=== PATIENT | male | born 1935 | race Caucasian/White ===

== ENCOUNTER 2018-01-03 20:39 | Emergency (ER) | payer MEDICARE, BC ==
--- NOTE | 2018-01-03 20:46 | EDM.PDOC ---
ED HPI GENERAL MEDICAL PROBLEM - General Stated Complaint: FELL Time Seen by Provider: 01/03/18 20:40 Source of Information: Reports: Patient, EMS History Limitations: Reports: No Limitations - History of Present Illness INITIAL COMMENTS - FREE TEXT/NARRATIVE: 82-year-old male who lives alone fell earlier this evening. He sustained an injury to his scalp, left shoulder, left ear, and has some discomfort in his right lower leg. He did have his phone so was able to call for help, was not on the floor for very long. Did not lose consciousness and remembers the incident. He is on anticoagulants. Onset: Sudden Location: Reports: Head, Upper Extremity, Left Severity: Moderate Worsens with: Reports: Movement Associated Symptoms: Denies: Confusion, Chest Pain, Cough, Diaphoresis, Fever/ Chills, Headaches, Nausea/Vomiting, Shortness of Breath Left Shoulder Pain Score (Numeric/FACES): 9 - Related Data Allergies Allergy/AdvReac Type Severity Reaction Status Date / Time rofecoxib [From Vioxx] Allergy Cannot Verified 01/03/18 21:20 Remember Home Meds: Home Meds Levothyroxine Sodium [Synthroid] 75 mcg PO DAILY 01/03/18 [History] Metoprolol Tartrate 25 mg PO BID 01/03/18 [History] Multivitamin [Multi-Day Vitamins] 1 tab PO DAILY 01/03/18 [History] Pantoprazole Sodium [Protonix] 40 mg PO DAILY 01/03/18 [History] Polyethylene Glycol 3350 [MiraLAX] 1 dose PO DAILY 01/03/18 [History] Potassium Chloride [Klor-Con M20] 20 meq PO BID 01/03/18 [History] Sotalol [Betapace] 80 mg PO BID 01/03/18 [History] Torsemide 20 mg PO ASDIRECTED 01/03/18 [History] Warfarin [Coumadin] 5 mg PO ASDIRECTED 01/03/18 [History] atorvaSTATin [Lipitor] 40 mg PO BEDTIME 01/03/18 [History] Past Medical History - Past Surgical History Other Cardiovascular Surgeries/Procedures: 2006 valve repairment Other Oncologic Surgeries/Procedures: colon ca surgery 1998 Social & Family History - Tobacco Use Smoking Status *Q: Never Smoker Second Hand Smoke Exposure: No - Alcohol Use Days Per Week of Alcohol Use: 0 - Recreational Drug Use Recreational Drug Use: No ED ROS GENERAL - Review of Systems Review Of Systems: See Below Constitutional: Denies: Fever, Chills HEENT: Denies: Vision Change Respiratory: Denies: Shortness of Breath, Cough Cardiovascular: Denies: Chest Pain GI/Abdominal: Denies: Abdominal Pain : Reports: No Symptoms Musculoskeletal: Reports: Shoulder Pain (Left-sided) Skin: Reports: Bruising (Bruising and areas of swelling on the scalp, bleeding from the left ear) Neurological: Denies: Headache Psychiatric: Reports: No Symptoms ED EXAM, GENERAL - Physical Exam Exam: See Below Exam Limited By: No Limitations General Appearance: Alert, No Apparent Distress (Patient looks uncomfortable but not distressed) Eye Exam: Bilateral Eye: EOMI Ears: Other (There is superficial abrasion with 2 very small lacerations on the jeni of the helix) Throat/Mouth: Normal Inspection Head: Other (2 separate small hematomas/contusions on the frontal scalp are present.) Respiratory/Chest: No Respiratory Distress, Lungs Clear Cardiovascular: Irregularly Irregular GI/Abdominal: Soft, Non-Tender Extremities: Pedal Edema (1+ symmetric edema, venous stasis changes of the skin) , Other Neurological: Alert, Oriented Psychiatric: Normal Affect, Normal Mood Course - Vital Signs Last Recorded V/S: Last Vital Signs Temp 98.1 F 01/03/18 21:24 Pulse 74 01/03/18 22:44 Resp 16 01/03/18 22:44 BP 168/74 H 01/03/18 22:44 Pulse Ox 96 01/03/18 22:44 - Orders/Labs/Meds Orders: Active Orders 24 hr Category Date Time Status Head wo Cont [CT] Stat Exams 01/03/18 20:45 Taken Humerus Lt [CR] Stat Exams 01/03/18 20:45 Taken Labs: Laboratory Tests 01/03/18 01/03/18 01/03/18 Range/Units 21:58 21:58 21:59 WBC 9.4 (4.5-11.0) K/uL RBC 3.59 L (4.30-5.90) M/uL Hgb 10.5 L (12.0-15.0) g/dL Hct 33.4 L (40.0-54.0) % MCV 93 (80-98) fL MCH 29 (27-31) pg MCHC 31 L (32-36) % Plt Count 138 L (150-400) K/uL Neut % (Auto) 82 H (36-66) % Lymph % (Auto) 9 L (24-44) % [place] % (Auto) 7 H (2-6) % Eos % (Auto) 2 (2-4) % Baso % (Auto) 0 (0-1) % PT 12.7 H (9.5-12.0) sec INR 1.18 (0.80-1.20) Sodium 141 (140-148) mmol/L Potassium 4.0 (3.6-5.2) mmol/L Chloride 107 (100-108) mmol/L Carbon Dioxide 26 (21-32) mmol/L Anion Gap 8.2 (5.0-14.0) mmol/L BUN 27 H (7-18) mg/dL Creatinine 1.1 (0.8-1.3) mg/dL Est Cr Clr Drug Dosing 52.67 mL/min Estimated GFR (MDRD) > 60 (>60) Glucose 147 H (74-106) mg/dL Calcium 8.4 L (8.5-10.1) mg/dL Meds: Medications Discontinued Medications Generic Name Dose Route Start Last Admin Trade Name Freq PRN Reason Stop Dose Admin Fentanyl 25 mcg 01/03/18 21:42 01/03/18 21:48 Sublimaze IVPUSH 01/03/18 21:43 25 mcg ONETIME ONE Administration Fentanyl 25 mcg 01/03/18 23:26 01/03/18 23:34 Sublimaze IVPUSH 01/03/18 23:27 25 mcg ONETIME ONE Administration - Re-Assessments/Exams Free Text/Narrative Re-Assessment/Exam: 01/03/18 22:01 Because of the Coumadin therapy, age of the patient and traumatic injury to the head, a CT of the head was obtained that showed no acute findings. An x-ray confirmed a fracture of the very proximal aspect of the surgical area of the left humerus. There was some mild displacement. The patient needed an additional 25 g of fentanyl for pain control. 01/03/18 22:49 INR was 1.18, Hemoccult and 10.7 which is consistent with previous readings at the clinic. CT of his head was negative. The patient will be transferred to [facility] for pain control, stabilization and likely long-term rehabilitation. Departure - Departure Time of Disposition: 00:04 Disposition: DC/Tfer to Other 70 Condition: Fair Clinical Impression: Humerus surgical neck fracture Qualifiers: Encounter type: initial encounter Fracture type: closed Fracture morphology: unspecified fracture morphology Fracture alignment: displaced Laterality: left Qualified Code(s): S42.212A - Unspecified displaced fracture of surgical neck of left humerus, initial encounter for closed fracture Closed head injury Qualifiers: Encounter type: initial encounter Qualified Code(s): S09.90XA - Unspecified injury of head, initial encounter - Discharge Information Referrals: PCP,None [Primary Care Provider] - Forms: ED Department Discharge Care Plan Goals: Patient's arm was immobilized, and transportation to [place] essential for inpatient evaluation and treatment was arranged. - My Orders Last 24 Hours: My Active Orders 01/03/18 20:45 Head wo Cont [CT] Stat Humerus Lt [CR] Stat - Assessment/Plan Last 24 Hours: My Active Orders 01/03/18 20:45 Head wo Cont [CT] Stat Humerus Lt [CR] Stat
[2018-01-03] MEDS ORDERED: fentaNYL 100 MCG/2 ML SDV IVPUSH ONE ×2 (21:42→23:26)
[2018-01-03 22:45] VITALS: BP 168/74
--- NOTE | 2018-01-04 11:21 | CR ---
Fracture of the surgical neck of the humerus extending into the left humeral head. Foreshortening at the fracture site. Arthritic change glenohumeral joint appears advanced.
== END 2018-01-03 23:55 | disposition other institution (70) ==
LOC: JP.ED 20:39
DX: S42.212A Unspecified displaced fracture of surgical neck of left humerus, initial encounter for closed fracture (principal); S09.90XA Unspecified injury of head, initial encounter; S01.312A Laceration without foreign body of left ear, initial encounter; W19.XXXA Unspecified fall, initial encounter; Z79.899 Other long term (current) drug therapy; Z88.8 Allergy status to other drugs, medicaments and biological substances; Z79.01 Long term (current) use of anticoagulants
CPT/HCPCS: 36415; 70450; 73060; 80048; 85025; 85610; 96374; 96376; 99285; J3010

== ENCOUNTER 2019-02-18 12:42 | Emergency (ER) | payer MEDICARE, BC ==
--- NOTE | 2019-02-18 13:35 | EDM.PDOC ---
ED HPI GENERAL MEDICAL PROBLEM - General Chief Complaint: General Stated Complaint: sob Time Seen by Provider: 02/18/19 13:20 Source of Information: Reports: Patient History Limitations: Reports: No Limitations - History of Present Illness INITIAL COMMENTS - FREE TEXT/NARRATIVE: 83-year-old male who was started on lisinopril 5 days ago has felt off, lightheaded, somewhat short of breath with activity and is wondering if he is having a serious reaction to the new medication. He does have a history of atrial fibrillation which is controlled with sotalol. He had labs done last week and he was told everything was "fine". He has no chest pain, no increased peripheral edema or nausea or vomiting. No nocturnal dyspnea. Onset: Unknown/Unsure Associated Symptoms: Reports: Shortness of Breath (With activity), Other ( Dizziness). Denies: Confusion, Chest Pain, Cough, Diaphoresis, Nausea/Vomiting Deneis Pain Score (Numeric/FACES): 0 - Related Data Allergies Allergy/AdvReac Type Severity Reaction Status Date / Time rofecoxib [From Vioxx] Allergy Cannot Verified 02/18/19 12:55 Remember Home Meds: Home Meds Levothyroxine Sodium [Synthroid] 75 mcg PO DAILY 01/03/18 [History] Multivitamin [Multi-Day Vitamins] 1 tab PO DAILY 01/03/18 [History] Pantoprazole Sodium [Protonix] 40 mg PO DAILY 01/03/18 [History] Polyethylene Glycol 3350 [MiraLAX] 1 dose PO DAILY PRN 01/03/18 [History] Potassium Chloride [Klor-Con M20] 20 meq PO DAILY 01/03/18 [History] Sotalol [Betapace] 80 mg PO BID 01/03/18 [History] Torsemide 40 mg PO ASDIRECTED 01/03/18 [History] Warfarin [Coumadin] 5 mg PO ASDIRECTED 01/03/18 [History] atorvaSTATin [Lipitor] 40 mg PO BEDTIME 01/03/18 [History] Lisinopril 5 mg PO DAILY 02/18/19 [History] Past Medical History HEENT History: Reports: Hard of Hearing Cardiovascular History: Reports: Afib, High Cholesterol, Hypertension Other Cardiovascular History: supraventricular beats, mitral valve regurg Musculoskeletal History: Reports: Arthritis, Osteoarthritis Endocrine/Metabolic History: Reports: Hypothyroidism Hematologic History: Reports: Blood Transfusion(s) Oncologic (Cancer) History: Reports: Colon - Infectious Disease History Infectious Disease History: Reports: Chicken Pox, Measles, Mumps - Past Surgical History Other Cardiovascular Surgeries/Procedures: 2006 valve repairment valve replacement 2016 GI Surgical History: Reports: Other (See Below) Other GI Surgeries/Procedures: colon resection with ostomy Musculoskeletal Surgical History: Reports: Arthroscopic Knee, Hip Replacement, Joint Replacement, Knee Replacement Other Oncologic Surgeries/Procedures: colon ca surgery 1998 Dermatological Surgical History: Reports: Skin Biopsy Social & Family History - Tobacco Use Smoking Status *Q: Never Smoker Second Hand Smoke Exposure: No - Caffeine Use Caffeine Use: Reports: None - Alcohol Use Days Per Week of Alcohol Use: 0 - Recreational Drug Use Recreational Drug Use: No ED ROS GENERAL - Review of Systems Review Of Systems: See Below Constitutional: Denies: Fever, Chills, Malaise HEENT: Reports: No Symptoms Respiratory: Reports: Shortness of Breath Cardiovascular: Denies: Chest Pain, Palpitations GI/Abdominal: Denies: Abdominal Pain, Nausea, Vomiting : Reports: No Symptoms Skin: Reports: No Symptoms Neurological: Reports: Dizziness Psychiatric: Reports: No Symptoms ED EXAM, GENERAL - Physical Exam Exam: See Below Exam Limited By: No Limitations General Appearance: Alert, No Apparent Distress Head: Atraumatic Neck: Normal Inspection Respiratory/Chest: No Respiratory Distress, Lungs Clear Cardiovascular: Regular Rate, Rhythm. No: Extra Beats GI/Abdominal: Soft, Non-Tender Extremities: Other (Symmetric trace edema of the lower extremities around the ankles) Neurological: Alert, Oriented Course - Vital Signs Last Recorded V/S: Last Vital Signs Temp 98.4 F 02/18/19 13:13 Pulse 55 L 02/18/19 14:25 Resp 16 02/18/19 13:13 BP 178/65 H 02/18/19 14:25 Pulse Ox 97 02/18/19 13:13 - Orders/Labs/Meds Labs: Laboratory Tests 02/18/19 02/18/19 Range/Units 13:43 13:43 WBC 5.7 (4.5-11.0) K/uL RBC 3.95 L (4.30-5.90) M/uL Hgb 12.5 D (12.0-15.0) g/dL Hct 38.2 L (40.0-54.0) % MCV 97 (80-98) fL MCH 32 H (27-31) pg MCHC 33 (32-36) % Plt Count 110 L (150-400) K/uL Neut % (Auto) 56 (36-66) % Lymph % (Auto) 25 (24-44) % [place] % (Auto) 13 H (2-6) % Eos % (Auto) 6 H (2-4) % Baso % (Auto) 0 (0-1) % Sodium 144 (140-148) mmol/L Potassium 4.6 (3.6-5.2) mmol/L Chloride 107 (100-108) mmol/L Carbon Dioxide 31 (21-32) mmol/L Anion Gap 6.1 (5.0-14.0) mmol/L BUN 38 H (7-18) mg/dL Creatinine 1.4 H (0.8-1.3) mg/dL Est Cr Clr Drug Dosing 42.00 mL/min Estimated GFR (MDRD) 49 L (>60) Glucose 89 (74-106) mg/dL Calcium 9.2 (8.5-10.1) mg/dL - Re-Assessments/Exams Free Text/Narrative Re-Assessment/Exam: 02/18/19 13:35 CBC and BMP were obtained, discussed with patient that lisinopril can have initial effects on the kidneys and electrolytes however if those are normal I think he can continue the medication. 02/18/19 17:05 Creatinine is 1.4 and GFR 47. These were normal last week. I asked the patient to hold tomorrow's dose of Lisinopril prior to his recheck and take the labs with to show the provider. Departure - Departure Time of Disposition: 14:58 Disposition: Home, Self-Care 01 Condition: Good Clinical Impression: Renal insufficiency Hypertension Qualifiers: Hypertension type: essential hypertension Qualified Code(s): I10 - Essential ( primary) hypertension - Discharge Information Instructions: Hypertension, [id number] Referrals: Coleman Arredondo MD [Primary Care Provider] - Forms: ED Department Discharge Care Plan Goals: Hold your lisinopril dose until you talk with your provider tomorrow, and take labs with to compare to last week. Return to the emergency room if you become significantly short of breath or develop chest pain.
[2019-02-18 14:34] VITALS: BP 178/65
== END 2019-02-18 14:58 | disposition home or self-care (01) ==
LOC: JP.ED 12:42
DX: N28.9 Disorder of kidney and ureter, unspecified (principal); I10 Essential (primary) hypertension; I48.91 Unspecified atrial fibrillation; E78.00 Pure hypercholesterolemia, unspecified; E03.9 Hypothyroidism, unspecified; Z79.899 Other long term (current) drug therapy; Z88.8 Allergy status to other drugs, medicaments and biological substances
CPT/HCPCS: 36415; 80048; 85025; 99283; 99284

== ENCOUNTER 2019-08-09 10:40 | Emergency (ER) | payer MEDICARE, BC ==
--- NOTE | 2019-08-09 11:17 | EDM.PDOC ---
ED HPI GENERAL MEDICAL PROBLEM - General Chief Complaint: General Stated Complaint: DIZZY THE A COLD SWEAT Time Seen by Provider: 08/09/19 11:07 Source of Information: Reports: Patient, Family, RN Notes Reviewed History Limitations: Reports: No Limitations - History of Present Illness INITIAL COMMENTS - FREE TEXT/NARRATIVE: 84-year-old gentleman presents emergency department today complaint of dizziness and diaphoresis. He awoke this morning stood up to go to the bathroom sudden onset of dizziness followed by diaphoresis and weakness, he denies any syncopal event, chest pain nausea vomiting or shortness of breath beyond baseline. At this time all of the symptoms have resolved - Related Data Allergies Allergy/AdvReac Type Severity Reaction Status Date / Time rofecoxib [From Vioxx] Allergy Cannot Verified 08/09/19 10:57 Remember Home Meds: Home Meds Levothyroxine Sodium [Synthroid] 75 mcg PO DAILY 01/03/18 [History] Multivitamin [Multi-Day Vitamins] 1 tab PO DAILY 01/03/18 [History] Pantoprazole Sodium [Protonix] 40 mg PO DAILY 01/03/18 [History] Polyethylene Glycol 3350 [MiraLAX] 1 dose PO DAILY PRN 01/03/18 [History] Potassium Chloride [Klor-Con M20] 20 meq PO DAILY 01/03/18 [History] Sotalol [Betapace] 80 mg PO BID 01/03/18 [History] Torsemide 40 mg PO ASDIRECTED 01/03/18 [History] Warfarin [Coumadin] 5 mg PO ASDIRECTED 01/03/18 [History] atorvaSTATin [Lipitor] 40 mg PO BEDTIME 01/03/18 [History] Aspirin [Halfprin] 81 mg PO DAILY 04/16/19 [History] Magnesium 30 mg PO DAILY 04/16/19 [History] amLODIPine [Norvasc] 5 mg PO DAILY 04/16/19 [History] Past Medical History HEENT History: Reports: Hard of Hearing Cardiovascular History: Reports: Afib, High Cholesterol, Hypertension Other Cardiovascular History: supraventricular beats, mitral valve regurg Musculoskeletal History: Reports: Arthritis, Osteoarthritis Endocrine/Metabolic History: Reports: Hypothyroidism Hematologic History: Reports: Blood Transfusion(s) Oncologic (Cancer) History: Reports: Colon - Infectious Disease History Infectious Disease History: Reports: Chicken Pox, Measles, Mumps - Past Surgical History Other Cardiovascular Surgeries/Procedures: 2006 valve repairment valve replacement 2016 GI Surgical History: Reports: Other (See Below) Other GI Surgeries/Procedures: colon resection with ostomy Musculoskeletal Surgical History: Reports: Arthroscopic Knee, Hip Replacement, Joint Replacement, Knee Replacement Other Oncologic Surgeries/Procedures: colon ca surgery 1998 Dermatological Surgical History: Reports: Skin Biopsy Social & Family History - Tobacco Use Smoking Status *Q: Never Smoker - Caffeine Use Caffeine Use: Reports: None ED ROS GENERAL - Review of Systems Review Of Systems: See Below Constitutional: Reports: Diaphoresis HEENT: Reports: No Symptoms Respiratory: Reports: No Symptoms Cardiovascular: Reports: Dyspnea on Exertion (Not beyond baseline), Lightheadedness. Denies: Syncope GI/Abdominal: Reports: No Symptoms : Reports: No Symptoms Neurological: Reports: Dizziness ED EXAM, GENERAL - Physical Exam Exam: See Below Free Text/Narrative:: General: Male, not in any distress, alert and oriented x3 HEENT: head is atraumatic normocephalic, eyes pupils equal round reactive to light, sclera clear no conjunctivitis appreciated. Ears hearing aids in place bilaterally. Nose no septal deviation, nares are clear, no blood present. Mouth mucosa is moist and pink no erythema or exudate noted in soft palate, tongue is midline uvula is midline, dentition is intact. Neck: Supple no thyromegaly no tracheal deviation. Nodes: Cervical nodes subclavicular nodes nontender no palpable lymphadenopathy noted. Lungs: clear to auscultation bilaterally with symmetrical respirations, no adventitious noise appreciated. CV: Irregularly irregular Regular rate and rhythm S1 and S2 appreciated no murmurs rubs or gallops noted. Abdomen: Soft, nontender, no palpable masses or organomegaly appreciated, no distention no guarding bowel sounds are present, colostomy bag in place. Neuro: GCS 15 Skin: Warm and dry, intact Extremities: +2 pitting edema bilaterally. Course - Vital Signs Last Recorded V/S: Last Vital Signs Temp 97.4 F 08/09/19 11:04 Pulse 56 L 08/09/19 11:46 Resp 13 08/09/19 11:04 BP 170/62 H 08/09/19 11:46 Pulse Ox 96 08/09/19 11:46 - Orders/Labs/Meds Orders: Active Orders 24 hr Category Date Time Status Cardiac Monitoring [RC] .As Directed Care 08/09/19 11:13 Active EKG Documentation Completion [RC] ASDIRECTED Care 08/09/19 11:13 Active EKG 12 Lead [EK] Stat Ther 08/09/19 11:13 Ordered Labs: Laboratory Tests 08/09/19 08/09/19 08/09/19 Range/Units 11:20 11:20 11:20 WBC 7.6 (4.5-11.0) K/uL RBC 4.28 L (4.30-5.90) M/uL Hgb 13.7 (12.0-15.0) g/dL Hct 41.1 (40.0-54.0) % MCV 96 (80-98) fL MCH 32 H (27-31) pg MCHC 33 (32-36) % Plt Count 118 L (150-400) K/uL Neut % (Auto) 81 H (36-66) % Lymph % (Auto) 13 L (24-44) % [place] % (Auto) 6 (2-6) % Eos % (Auto) 1 L (2-4) % Baso % (Auto) 0 (0-1) % PT 20.2 H (9.5-12.0) sec INR 1.94 H (0.80-1.20) Sodium 141 (140-148) mmol/L Potassium 3.4 L (3.6-5.2) mmol/L Chloride 104 (100-108) mmol/L Carbon Dioxide 29 (21-32) mmol/L Anion Gap 11.4 (5.0-14.0) mmol/L BUN 24 H (7-18) mg/dL Creatinine 1.1 (0.8-1.3) mg/dL Est Cr Clr Drug Dosing 52.54 mL/min Estimated GFR (MDRD) > 60 (>60) Glucose 163 H (74-106) mg/dL Calcium 8.5 (8.5-10.1) mg/dL Troponin I < 0.017 (0.000-0.056) ng/mL Departure - Departure Time of Disposition: 12:39 Disposition: Home, Self-Care 01 Condition: Fair Clinical Impression: Dizzy - Discharge Information Referrals: Coleman Arredondo MD [Primary Care Provider] - Forms: ED Department Discharge Additional Instructions: Continue with your regular medications, please keep your follow-up appointments with your primary care and cardiology call or return to the emergency department worsening of symptoms - My Orders Last 24 Hours: My Active Orders 08/09/19 11:13 Cardiac Monitoring [RC] .As Directed EKG Documentation Completion [RC] ASDIRECTED EKG 12 Lead [EK] Stat - Assessment/Plan Last 24 Hours: My Active Orders 08/09/19 11:13 Cardiac Monitoring [RC] .As Directed EKG Documentation Completion [RC] ASDIRECTED EKG 12 Lead [EK] Stat Plan: Assessment Acuity = acute Site and laterality = dizziness 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
[2019-08-09 11:46] VITALS: BP 170/62; PULSE 56
== END 2019-08-09 12:56 | disposition home or self-care (01) ==
LOC: JP.ED 10:40
DX: R42 Dizziness and giddiness (principal); I48.91 Unspecified atrial fibrillation; I10 Essential (primary) hypertension; E03.9 Hypothyroidism, unspecified; Z88.8 Allergy status to other drugs, medicaments and biological substances; Z79.01 Long term (current) use of anticoagulants; Z79.82 Long term (current) use of aspirin; Z79.890 Hormone replacement therapy; Z79.899 Other long term (current) drug therapy
CPT/HCPCS: 36415; 80048; 84484; 85025; 85610; 93005; 99284-25

== ENCOUNTER 2021-10-09 05:58 | Emergency (ER) | payer MEDICARE, BC ==
[2021-10-09 06:14] VITALS: BP 168/68; PULSE 84
--- NOTE | 2021-10-09 06:55 | EDM.PDOC ---
<Syed Winslow - Last Filed: 10/09/21 06:45> ED HPI GENERAL MEDICAL PROBLEM - General Chief Complaint: Abdominal Pain Stated Complaint: [facility] Time Seen by Provider: 10/09/21 06:30 Source of Information: Reports: Patient, EMS History Limitations: Reports: No Limitations - History of Present Illness INITIAL COMMENTS - FREE TEXT/NARRATIVE: 86-year-old male with a significant persistent cough for the past 5 to 6 days, causing some abdominal pain and nausea. He feels weak and had a episode of emesis this morning so called the ambulance. He wants to drink water but when he does it makes him nauseous. Cough is nonproductive, no fevers or chills. He is fully vaccinated for Covid. He has not been seen or tested recently. Onset: Gradual Duration: Day(s): (Symptoms have been worsening for the past 6 days especially as cough and soreness in his abdomen) Improves with: Reports: None Associated Symptoms: Reports: Cough, Malaise, Nausea/Vomiting, Shortness of Breath. 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 Bilateral Abdomen Pain Score (Numeric/FACES): 4 - Related Data Allergies Allergy/AdvReac Type Severity Reaction Status Date / Time rofecoxib [From Vioxx] Allergy Cannot Verified 10/09/21 06:14 Remember Home Meds: Home Meds Levothyroxine Sodium [Synthroid] 75 mcg PO DAILY 01/03/18 [History] Multivitamin [Multi-Day Vitamins] 1 tab PO DAILY 01/03/18 [History] Pantoprazole Sodium [Protonix] 40 mg PO DAILY 01/03/18 [History] Potassium Chloride [Klor-Con M20] 20 meq PO DAILY 01/03/18 [History] Sotalol [Betapace] 80 mg PO BID 01/03/18 [History] Torsemide 40 mg PO ASDIRECTED 01/03/18 [History] Warfarin [Coumadin] 5 mg PO ASDIRECTED 01/03/18 [History] atorvaSTATin [Lipitor] 40 mg PO BEDTIME 01/03/18 [History] polyethylene glycoL 3350 [MiraLAX] 1 dose PO DAILY PRN 01/03/18 [History] Aspirin [Halfprin] 81 mg PO DAILY 04/16/19 [History] Magnesium 30 mg PO DAILY 04/16/19 [History] amLODIPine [Norvasc] 5 mg PO DAILY 04/16/19 [History] Oseltamivir [Tamiflu] 75 mg PO BID #9 cap 10/09/21 [Rx] Past Medical History HEENT History: Reports: Hard of Hearing, Impaired Vision Cardiovascular History: Reports: Afib, High Cholesterol, Hypertension Other Cardiovascular History: supraventricular beats, mitral valve regurg Musculoskeletal History: Reports: Arthritis, Osteoarthritis Endocrine/Metabolic History: Reports: Hypothyroidism Hematologic History: Reports: Blood Transfusion(s) Oncologic (Cancer) History: Reports: Colon - Infectious Disease History Infectious Disease History: Reports: Chicken Pox, Measles, Mumps - Past Surgical History Other Cardiovascular Surgeries/Procedures: 2006 valve repairment valve replacement 2015 GI Surgical History: Reports: Colostomy, Other (See Below) Other GI Surgeries/Procedures: colon resection with ostomy Musculoskeletal Surgical History: Reports: Arthroscopic Knee, Hip Replacement, Joint Replacement, Knee Replacement Other Oncologic Surgeries/Procedures: colon ca surgery 1998 Dermatological Surgical History: Reports: Skin Biopsy Social & Family History - Tobacco Use Tobacco Use Status *Q: Never Tobacco User - Caffeine Use Caffeine Use: Reports: None - Recreational Drug Use Recreational Drug Use: No ED ROS GENERAL - Review of Systems Review Of Systems: See Below Constitutional: Reports: Malaise, Decreased Appetite. Denies: Fever, Chills HEENT: Denies: Throat Pain Respiratory: Reports: Shortness of Breath, Cough. Denies: Sputum Cardiovascular: Denies: Chest Pain, Palpitations GI/Abdominal: Reports: Abdominal Pain (Especially with coughing), Vomiting ( one episode of vomiting this morning) : Reports: No Symptoms Skin: Reports: Other (Venous stasis changes of his lower extremities) Neurological: Reports: Weakness. Denies: Dizziness, Headache Psychiatric: Reports: No Symptoms ED EXAM, GENERAL - Physical Exam Exam: See Below General Appearance: Alert, No Apparent Distress Eye Exam: Bilateral Eye: Normal Inspection (No jaundice) Head: Atraumatic Respiratory/Chest: No Respiratory Distress, Decreased Breath Sounds (Diffuse decreased breath sounds, a few scattered rhonchi but overall good air movement bilaterally) Cardiovascular: Regular Rate, Rhythm. No: Extra Beats GI/Abdominal: Normal Bowel Sounds, Soft, Tender (Diffuse mild tenderness to palp ation, no focal tenderness or guarding) Extremities: Other (A trace of symmetric pitting edema, significant chronic discoloration of the lower extremities due to vascular insufficiency) Neurological: Alert, Oriented Psychiatric: Normal Affect, Normal Mood Skin Exam: Warm, Dry Course - Re-Assessments/Exams Free Text/Narrative Re-Assessment/Exam: 10/09/21 06:56 A 4 Plex Covid study was obtained as well as a CBC and CMP. Chest x-ray may be beneficial. Care was turned over to Dr. Beck. Departure - Departure Disposition: Home, Self-Care 01 Clinical Impression: Influenza A, Weakness - Discharge Information Prescriptions: Oseltamivir [Tamiflu] 75 mg PO BID #9 cap Instructions: Influenza, Adult, [id number] Referrals: PCP,None [Primary Care Provider] - Forms: ED Department Discharge Additional Instructions: Take Tamiflu every 12 hrs until gone. Take acetaminophen up to 1000 mg every 6 hrs as needed for pain and fever control. Drink ample fluids. Follow up with your family doctor as needed for further guidance. Sepsis Event Note (ED) - Evaluation Sepsis Screening Result: No Definite Risk <Kit Beck - Last Filed: 10/09/21 11:23> Course - Vital Signs Last Recorded V/S: Last Vital Signs Temp 37.7 C 10/09/21 06:01 Pulse 84 10/09/21 06:01 Resp 18 10/09/21 06:01 BP 168/68 H 10/09/21 06:01 Pulse Ox 95 10/09/21 06:01 - Orders/Labs/Meds Orders: Active Orders 24 hr Category Date Time Status Chest 2V [CR] Routine Exams 10/09/21 06:44 Taken Isolation [COMM] Stat Oth 10/09/21 06:22 Ordered Labs: Laboratory Tests 10/09/21 10/09/21 10/09/21 Range/Units 06:22 06:59 06:59 WBC 7.7 (4.5-11.0) K/uL RBC 3.87 L (4.30-5.90) M/uL Hgb 12.4 (12.0-15.0) g/dL Hct 37.2 L (40.0-54.0) % MCV 96 (80-98) fL MCH 32 H (27-31) pg MCHC 33 (32-36) % Plt Count 165 (150-400) K/uL Neut % (Auto) 80.2 H (36-66) % Lymph % (Auto) 9.4 L (24-44) % [place] % (Auto) 10.0 H (2-6) % Eos % (Auto) 0.1 L (2-4) % Baso % (Auto) 0.3 (0-1) % Sodium 141 (140-148) mmol/L Potassium 3.9 (3.6-5.2) mmol/L Chloride 101 (100-108) mmol/L Carbon Dioxide 31 (21-32) mmol/L Anion Gap 9.2 (5.0-14.0) mmol/L BUN 23 H (7-18) mg/dL Creatinine 1.2 (0.8-1.3) mg/dL Est Cr Clr Drug Dosing 45.01 mL/min Estimated GFR (MDRD) 58 L (>60) Glucose 124 H (74-106) mg/dL Calcium 8.9 (8.5-10.1) mg/dL Total Bilirubin 0.8 (0.2-1.0) mg/dL AST 34 (15-37) U/L ALT 32 (12-78) U/L Alkaline Phosphatase 87 (46-116) U/L Total Protein 7.1 (6.4-8.2) g/dL Albumin 3.3 L (3.4-5.0) g/dL Globulin 3.8 H (2.3-3.5) g/dL Albumin/Globulin Ratio 0.9 L (1.2-2.2) Influenza Type A RNA Positive H (NEGATIVE) RSV RNA (INAAT) Negative (NEGATIVE) Influenza Type B RNA Negative (NEGATIVE) SARS-CoV-2 RNA (AAKASH) Negative (NEGATIVE) Meds: Medications Discontinued Medications Generic Name Dose Route Start Last Admin Trade Name Freq PRN Reason Stop Dose Admin Acetaminophen 1,000 mg 10/09/21 07:22 10/09/21 08:01 Acetaminophen 500 Mg Tab PO 10/09/21 07:23 1,000 mg ONETIME ONE Administration Oseltamivir Phosphate 75 mg 10/09/21 07:44 10/09/21 08:02 Oseltamivir 75 Mg Cap PO 10/09/21 07:45 75 mg ONETIME ONE Administration - Radiology Interpretation Free Text/Narrative:: CXR-nothing acute - Re-Assessments/Exams Free Text/Narrative Re-Assessment/Exam: 10/09/21 10:41D Daughter in [place] contacted to come and pick him up. Departure - Departure Time of Disposition: 11:15 Condition: Fair - Discharge Information *PRESCRIPTION DRUG MONITORING PROGRAM REVIEWED*: Not Applicable *COPY OF PRESCRIPTION DRUG MONITORING REPORT IN PATIENT CELESTINO: Not Applicable Sepsis Event Note (ED) - Focused Exam Vital Signs: Vital Signs Temp Pulse Resp BP Pulse Ox 10/09/21 06:01 37.7 C 84 18 168/68 H 95
[2021-10-09 07:04] LABS: CORONAVIRUS COVID-19 NAA NEGATIVE (NEGATIVE)
[2021-10-09] MEDS ORDERED: Acetaminophen 500 MG Tab PO ONE (07:22)
[2021-10-09] MEDS ORDERED: Oseltamivir 75 MG Cap PO ONE (07:44)
--- NOTE | 2021-10-10 09:33 | CR ---
CHEST: 2 view CLINICAL HISTORY:Dyspnea COMPARISON:2014 FINDINGS: Heart is mildly enlarged. Patient has had previous sternotomy. There are atherosclerotic changes in the aorta. Pulmonary vascularity is normal. No infiltrates are seen. Impression: Cardiomegaly No acute cardiopulmonary process
== END 2021-10-09 11:17 | disposition home or self-care (01) ==
LOC: JP.ED 05:58
DX: J10.1 Influenza due to other identified influenza virus with other respiratory manifestations (principal); I10 Essential (primary) hypertension; E03.9 Hypothyroidism, unspecified; Z20.822 Contact with and (suspected) exposure to COVID-19; Z79.899 Other long term (current) drug therapy; Z79.82 Long term (current) use of aspirin
CPT/HCPCS: 0241U; 36415; 71046; 80053; 85025; 99285; A9270